=== PATIENT | male | born 1965 | race Caucasian/White ===

== ENCOUNTER → 2020-05-21 | Outpatient (CLI) | payer BC ==
[~2020-05-21] MED LIST: GADOBENATE DIMEGLUMINE 0 ML IV ONE; LISINOPRIL-HCT1 EACH PO
[2020-05-21 09:03] LABS: BLOOD UREA NITROGEN 22 mg/dL (7-26); BUN/CREATININE RATIO 19 (6-25); CREATININE, SERUM 1.15 mg/dL (0.72-1.25); EST GLOMERULAR FILTRATION RATE > 60 ML/MIN (60-)
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
== END ==
LOC: MRI 08:12
PROVIDERS: ATTEND Family Medicine
DX: R22.31 Localized swelling, mass and lump, right upper limb (principal); R42 Dizziness and giddiness; Z87.820 Personal history of traumatic brain injury
CPT/HCPCS: 36415; 70551; 82565; 84520

== ENCOUNTER → 2020-07-07 | Day surgery (SDC) | payer BC, OTHER ==
[2020-07-05 10:19] LABS: ANION GAP 18.8 mmol/L (8-16); CREATININE, SERUM 1.29 mg/dL (0.72-1.25); POTASSIUM 4.8 mmol/L (3.5-5.1)
[~2020-07-07] MED LIST changes: +ACETAMINOPHEN-1 EAC4 PO; +ALLEGRA-D 24 H1 EACH PO; +BUPROPION XL150 MG PO; +CEFAZOLIN SOD 1 GM/NS 50ML 100 ML IV ONE; +CYCLOBENZAPRINE10 MG PO; +DEXAMETHASONE SOD PHOS INJ 4 MG/ML VIAL ONE; +DIAZEPAM5 MG PO; +EPHEDRINE SULFATE INJ 50 MG/ML VIAL ONE; +EPINEPHRINE 1 MG/ML 30ML VIAL ONE; +FENTANYL CITRATE/PF 100MCG/2 ML INJ ONE; +FLOMAX0.4 MG PO; -GADOBENATE DIMEGLUMINE 0 ML IV ONE; +GLYCOPYRROLATE INJ 0.2 MG/ML VIAL ONE; +KETOROLAC TROMETHAMINE 30 MG/ML VIAL ONE; +LIDOCAINE 2%/ EPINEPHRINE 20ML MDV ONE; +LIDOCAINE HCL 2% LOCAL INJ 5 ML SDV VIAL INJ ONE; +MIDAZOLAM HCL 2 MG/2 ML VIAL ONE; +NABUMETONE750 MG PO; +NEOSTIGMINE 1 MG/ML 10ML VIAL ONE; +OLANZAPINE5 MG PO; +ONDANSETRON HCL INJ 2MG/ML 2ML 2 MG/ML VIAL ONE; +PRAVACHOL40 MG PO; +PROPOFOL IV EMULSION 10 MG/ML 20 ML VIAL ONE; +ROCURONIUM BROMIDE 10 MG/ML 5ML VIAL IV ONE; +ROPIVACAINE 0.5% 5 MG/ML 30 ML SDV ONE; +SEVOFLURANE INHAL SOLN 250 ML PEN BTL ONE; +SUCCINYLCHOLINE CHLORIDE 20 MG/ML 10ML VIAL ONE; +XIGDUO XR 10 M1 EAC1 PO
--- NOTE | 2020-07-07 10:25 | Operative Report ---
DATE OF PROCEDURE: 07/07/2020 SURGEON: Juve Hebert MD PREOPERATIVE DIAGNOSES: 1. Right shoulder rotator cuff tear. 2. Right shoulder AC joint arthritis. POSTOPERATIVE DIAGNOSES: 1. Right shoulder rotator cuff tear. 2. Right shoulder AC joint arthritis. 3. Right shoulder synovitis. 4. Right shoulder partial biceps tendon tear. 5. Right shoulder chondromalacia glenoid. OPERATIONS/PROCEDURES PERFORMED: The patient underwent right shoulder exam under anesthesia, right shoulder arthroscopy, right shoulder debridement of synovitis, right shoulder chondroplasty of the glenoid, right shoulder arthroscopic debridement of partial biceps tendon tear, right shoulder arthroscopic rotator cuff reconstruction, right shoulder arthroscopic subacromial decompression and acromioplasty, right shoulder arthroscopic distal clavicle resection. 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 ANESTHESIA: General endotracheal intubation anesthesia as well as regional block. IV FLUIDS: Per the anesthesia record. BLOOD LOSS: Minimal. COMPLICATIONS: None. BRIEF DESCRIPTION OF THE PATIENT'S OPERATIVE PROCEDURE: Mr. Tovar was taken to the operating room and placed in a supine position on the operating table. Following induction of general anesthesia as well as endotracheal intubation, patient's right upper extremity was examined under anesthesia. He was found to have a normal-appearing shoulder. He had full passive range of motion of the shoulder joint without evidence of instability. The patient's upper extremity was prepped and draped in the standard surgical fashion. Standard posterior lateral and anterior port was created without difficulty. The scope was placed within the shoulder joint atraumatically. Examination of the glenohumeral articulation demonstrated chondromalacia of the glenoid. There was diffuse synovitis in the shoulder joint. There were no loose bodies. There was a full-thickness and mildly retracted rotator cuff tear. A probe was placed in the shoulder joint and examination of the biceps tendon demonstrated that it was contained within the shoulder joint, but the extra-articular portion of the biceps tendon was found to be partially torn. The shaver was placed in the shoulder and the synovitis was debrided. A chondroplasty of the glenoid was performed. The biceps tendon injury was also debrided at this time. The shaver was then used to debride the insertion site for the rotator cuff. A bleeding bony bed was created over the greater tuberosity in the region, where the rotator cuff was torn. The shoulder was inflated with sterile normal saline. The scope was transferred to the subacromial space and there were significant bursal inflammation. A lateral portal was created from an outside-in technique. A bursectomy was performed. The rotator cuff injury was easily identified. The insertion site was further debrided using a shaver. A single triple loaded suture anchor was inserted into the greater tuberosity of the humerus and the suture arms from the anchor were then woven through the rotator cuff tissue. The rotator cuff tissue was then advanced and tied firmly over the greater tuberosity in creating the repair of the patient's injury. An aggressive acromioplasty was then performed. The shoulder was then placed in range of motion and no impingement was encountered. Attention was then turned to the acromioclavicular joint. The anterior portal was transferred into the subacromial space. Shaver was used to isolate the distal clavicle. The shaver was then used to resect a 1 cm section of the distal clavicle. This is confirmed by transferring the scope to the anterior portal. The shoulder was then deflated with sterile normal saline. Each of the portal sites were closed using 4-0 nylon suture. The port sites were then dressed sterilely. The patient was then provided with a shoulder immobilizer and awakened and taken to the postanesthesia care unit in stable condition. MD TITUS Marion/RENA /[id number]
[2020-07-07 10:40] VITALS: BP 156/100
== END | disposition home or self-care (01) ==
LOC: OR 05:00
PROVIDERS: ATTEND Specialist
DX: M75.121 Complete rotator cuff tear or rupture of right shoulder, not specified as traumatic (principal); M19.011 Primary osteoarthritis, right shoulder; M75.122 Complete rotator cuff tear or rupture of left shoulder, not specified as traumatic; M19.012 Primary osteoarthritis, left shoulder; M65.811 Other synovitis and tenosynovitis, right shoulder; S46.211A Strain of muscle, fascia and tendon of other parts of biceps, right arm, initial encounter; M94.211 Chondromalacia, right shoulder; E11.9 Type 2 diabetes mellitus without complications; R20.2 Paresthesia of skin; I10 Essential (primary) hypertension; E78.5 Hyperlipidemia, unspecified; K21.9 Gastro-esophageal reflux disease without esophagitis; F41.9 Anxiety disorder, unspecified; F32.9 Major depressive disorder, single episode, unspecified; Z01.810 Encounter for preprocedural cardiovascular examination; Z01.812 Encounter for preprocedural laboratory examination; Z11.59 Encounter for screening for other viral diseases; Z68.33 Body mass index [BMI] 33.0-33.9, adult; Z87.891 Personal history of nicotine dependence
CPT/HCPCS: 29824; 29826; 29827; 36415 ×2; 80048; 82948; 93005; C1713; J0330; J0690; J1100; J1885; J2001 ×2; J2250; J2405; J2704; J2710; J2795; J3010; U0002

== ENCOUNTER → 2020-09-22 | Day surgery (SDC) | payer BC ==
[2020-09-17 15:46] LABS: BASOPHILS # (AUTO) 0.1 (0.0-0.1); EOSINOPHILS # (AUTO) 0.2 (0.0-0.4); EOSINOPHILS % 2.4 % (0.0-6.0); HEMATOCRIT 50.5 % (38.2-49.6); LYMPHOCYTES % 24.1 % (18.0-39.1); MEAN CORPUSCULAR HEMOGLOBIN 33.7 pg (28-32); MEAN CORPUSCULAR HGB CONC 33.7 g/dL (31-35); MONOCYTES # (AUTO) 1.3 (0.2-0.8); NEUTROPHILS # (AUTO) 4.8 (2.1-6.9); NEUTROPHILS % 57.1 % (38.7-80.0); PLATELET COUNT 192 x10e3/uL (140-360); RED BLOOD COUNT 5.05 x10e6/uL (4.3-5.7); RED CELL DISTRIBUTION WIDTH 12.6 % (11.7-14.4)
[2020-09-17 16:06] LABS: ANION GAP 14.9 mmol/L (8-16); BLOOD UREA NITROGEN 18 mg/dL (7-26); BUN/CREATININE RATIO 17 (6-25); CALCIUM 10.1 mg/dL (8.4-10.2); CARBON DIOXIDE 27 mmol/L (22-29); CHLORIDE 102 mmol/L (98-107); CREATININE, SERUM 1.03 mg/dL (0.72-1.25); EST GLOMERULAR FILTRATION RATE > 60 ML/MIN (60-); GLUCOSE 169 mg/dL (74-118); POTASSIUM 3.9 mmol/L (3.5-5.1); SODIUM 140 mmol/L (136-145)
[~2020-09-22] MED LIST changes: -EPHEDRINE SULFATE INJ 50 MG/ML VIAL ONE; +EPINEPHRINE HCL 1:1000 1ML 1 MG/ML AMP ONE; -GLYCOPYRROLATE INJ 0.2 MG/ML VIAL ONE; -KETOROLAC TROMETHAMINE 30 MG/ML VIAL ONE; -NEOSTIGMINE 1 MG/ML 10ML VIAL ONE; -ONDANSETRON HCL INJ 2MG/ML 2ML 2 MG/ML VIAL ONE; -SUCCINYLCHOLINE CHLORIDE 20 MG/ML 10ML VIAL ONE; +ZEBETA10 MG PO
[2020-09-22 12:05] VITALS: BP 126/81
== END | disposition home or self-care (01) ==
LOC: OR 05:36
PROVIDERS: ATTEND Specialist
DX: M75.122 Complete rotator cuff tear or rupture of left shoulder, not specified as traumatic (principal); M19.012 Primary osteoarthritis, left shoulder; M65.812 Other synovitis and tenosynovitis, left shoulder; S46.212A Strain of muscle, fascia and tendon of other parts of biceps, left arm, initial encounter; G47.33 Obstructive sleep apnea (adult) (pediatric); I10 Essential (primary) hypertension; E11.9 Type 2 diabetes mellitus without complications; X58.XXXA Exposure to other specified factors, initial encounter; Z01.812 Encounter for preprocedural laboratory examination; Z20.828 Contact with and (suspected) exposure to other viral communicable diseases; Z79.84 Long term (current) use of oral hypoglycemic drugs; Z68.33 Body mass index [BMI] 33.0-33.9, adult
CPT/HCPCS: 36415; 71046; 80048; 82948; 85025; 93005; C1713; J0171; J0690; J1100; J2001; J2250; J2795; J3010; U0002

== ENCOUNTER → 2021-01-12 | Outpatient (CLI) | payer BC ==
[~2021-01-12] MED LIST changes: -CEFAZOLIN SOD 1 GM/NS 50ML 100 ML IV ONE; -DEXAMETHASONE SOD PHOS INJ 4 MG/ML VIAL ONE; -EPINEPHRINE 1 MG/ML 30ML VIAL ONE; -EPINEPHRINE HCL 1:1000 1ML 1 MG/ML AMP ONE; -FENTANYL CITRATE/PF 100MCG/2 ML INJ ONE; -LIDOCAINE 2%/ EPINEPHRINE 20ML MDV ONE; -LIDOCAINE HCL 2% LOCAL INJ 5 ML SDV VIAL INJ ONE; -MIDAZOLAM HCL 2 MG/2 ML VIAL ONE; -PROPOFOL IV EMULSION 10 MG/ML 20 ML VIAL ONE; -ROCURONIUM BROMIDE 10 MG/ML 5ML VIAL IV ONE; -ROPIVACAINE 0.5% 5 MG/ML 30 ML SDV ONE; -SEVOFLURANE INHAL SOLN 250 ML PEN BTL ONE
== END ==
LOC: MRI 10:44
PROVIDERS: ATTEND Family Medicine
DX: R55 Syncope and collapse (principal); R93.6 Abnormal findings on diagnostic imaging of limbs
CPT/HCPCS: 93880; 95812

== ENCOUNTER 2021-06-12 12:13 | Inpatient (IN) | payer BC ==
[~2021-06-12] VITALS: Ht 172.7 cm; Wt 93.0 kg
[2021-06-12] MEDS ORDERED: METHYLPREDNISOLONE SOD SUCC 125 MG/2ML VIAL IV STA (12:22)
[2021-06-12] MEDS ORDERED: DIPHENHYDRAMINE HCL INJ 50 MG/ML VIAL IV NR (12:30)
[2021-06-12] MEDS ORDERED: MULTIVITAMINS- 12 INJECTION 10 ML, FOLIC ACID MDV 1 MG, THIAMINE HCL INJ 100 MG in SODI... IV ONE ×2 (12:30→15:30)
[2021-06-12] MEDS ORDERED: LORAZEPAM INJ 2 MG/ML VIAL IV NR (12:30)
[2021-06-12] MEDS ORDERED: FAMOTIDINE 20 MG/2 ML VIAL IV NR (12:45)
[2021-06-12 13:29] LABS: BASOPHILS # (AUTO) 0.1 (0.0-0.1); BASOPHILS % 0.8 % (0.0-1.0); EOSINOPHILS # (AUTO) 0.1 (0.0-0.4); EOSINOPHILS % 1.7 % (0.0-6.0); HEMATOCRIT 40.5 % (38.2-49.6); HEMOGLOBIN 13.7 g/dL (14.0-18.0); LYMPHOCYTES # (AUTO) 2.3 (1.0-3.2); LYMPHOCYTES % 31.9 % (18.0-39.1); MEAN CORPUSCULAR HEMOGLOBIN 33.2 pg (28-32); MEAN CORPUSCULAR HGB CONC 33.8 g/dL (31-35); MEAN CORPUSCULAR VOLUME 98.1 fL (81-99); MONOCYTES # (AUTO) 0.8 (0.2-0.8); MONOCYTES % 11.6 % (4.4-11.3); NEUTROPHILS # (AUTO) 3.9 (2.1-6.9); NEUTROPHILS % 53.7 % (38.7-80.0); PLATELET COUNT 224 x10e3/uL (140-360); RED BLOOD COUNT 4.13 x10e6/uL (4.3-5.7); RED CELL DISTRIBUTION WIDTH 14.5 % (11.7-14.4)
[2021-06-12 13:43] LABS: AMPHETAMINES SCREEN,URINE NEGATIVE (NEGATIVE); BENZODIAZEPINES SCREEN,URINE POSITIVE (NEGATIVE); PHENCYCLIDINE SCREEN,URINE NEGATIVE (NEGATIVE)
[2021-06-12 13:44] LABS: CLARITY,URINE CLEAR (CLEAR); COLOR,URINE YELLOW (YELLOW); KETONES,URINE 1+ (NEGATIVE); LEUKOCYTE ESTERASE ,URINE NEGATIVE (NEGATIVE); NITRITE,URINE NEGATIVE (NEGATIVE); PROTEIN,URINE DIPSTICK NEGATIVE (NEGATIVE); URINE UROBILINOGEN 0.2 mg/dL (0.2 - 1)
[2021-06-12 13:51] LABS: INR 0.98; PROTHROMBIN TIME 13.2 seconds (11.9-14.5)
[2021-06-12 13:56] LABS: BACTERIA,URINE FEW /HPF; EPITHELIAL CELLS,URINE RARE /LPF; WBC,URINE (MAN) 0-5 /HPF (0-5)
[2021-06-12 13:58] LABS: ALBUMIN 4.3 g/dL (3.5-5.0); ALBUMIN/GLOBULIN RATIO 1.3 (0.8-2.0); ANION GAP 22.6 mmol/L (8-16); CALCIUM 9.9 mg/dL (8.4-10.2); CREATININE, SERUM 1.31 mg/dL (0.72-1.25); POTASSIUM 3.6 mmol/L (3.5-5.1)
[2021-06-12 14:05] LABS: CREATINE KINASE MB 4.1 ng/mL (0-5.0)
[2021-06-12] MEDS ORDERED: IOPAMIDOL 370 MG/ML 200 ML INFUS..BTL INJ ONE (14:32)
[2021-06-12] MEDS ORDERED: SODIUM CHLORIDE 0.9% 50ML 50 ML ONE (14:32)
[2021-06-12] MEDS ORDERED: LEVETIRACETAM 500MG/5ML VIAL 1,000 MG in SODIUM CHLORIDE 0.9% 100 ML 100 ML IV ONE (15:00)
[2021-06-12] MEDS ORDERED: LORAZEPAM INJ 2 MG/ML VIAL IV PRN (15:30)
[2021-06-12] MEDS ORDERED: ONDANSETRON HCL INJ 2MG/ML 2ML 2 MG/ML VIAL IV PRN ×2 (15:30→19:30)
[2021-06-12] MEDS ORDERED: FAMOTIDINE 20 MG/2 ML VIAL IV SCH (15:30)
[2021-06-12 17:40] VITALS: BP 128/89
[2021-06-12 18:00] VITALS: BP 128/89
[2021-06-12 18:54] LABS: CREATINE KINASE MB 3.1 ng/mL (0-5.0)
[2021-06-12] MEDS ORDERED: ACETAMINOPHEN 325 MG TAB PO PRN (19:30)
[2021-06-12] MEDS ORDERED: HYDRALAZINE HCL 20 MG/ML VIAL IV PRN (19:30)
[2021-06-12] MEDS ORDERED: POLYETHYLENE GLYCOL 3350 17 GM PACK PO PRN (19:30)
[2021-06-12 20:00] VITALS: BP 131/89
[2021-06-12] MEDS ORDERED: BUPROPION HCL150 MG PO (22:04)
[2021-06-12] MEDS ORDERED: BUPROPION HCL150 M2 PO (22:04)
[2021-06-12 22:25] VITALS: BP 131/89
[2021-06-12] MEDS ORDERED: DIAZEPAM 5 MG TAB PO PRN (22:30)
[2021-06-13] VITALS (7 sets, daily range): BP systolic 99–112; BP diastolic 61–80
[2021-06-13 00:31] LABS: CREATINE KINASE MB 2.7 ng/mL (0-5.0)
[2021-06-13 06:31] LABS: BASOPHILS % 0.2 % (0.0-1.0); HEMATOCRIT 37.1 % (38.2-49.6); HEMOGLOBIN 12.6 g/dL (14.0-18.0); LYMPHOCYTES % 7.8 % (18.0-39.1); MEAN CORPUSCULAR HEMOGLOBIN 32.8 pg (28-32); MEAN CORPUSCULAR VOLUME 96.6 fL (81-99); MONOCYTES # (AUTO) 1.1 (0.2-0.8); MONOCYTES % 8.6 % (4.4-11.3); NEUTROPHILS # (AUTO) 10.1 (2.1-6.9); NEUTROPHILS % 82.7 % (38.7-80.0); PLATELET COUNT 210 x10e3/uL (140-360); RED BLOOD COUNT 3.84 x10e6/uL (4.3-5.7); RED CELL DISTRIBUTION WIDTH 14.1 % (11.7-14.4)
[2021-06-13 06:53] LABS: ALBUMIN 3.4 g/dL (3.5-5.0); ALBUMIN/GLOBULIN RATIO 1.2 (0.8-2.0); CALCIUM 8.6 mg/dL (8.4-10.2); CHOL/HDL RATIO 2.1 (3.9-4.7); CREATININE, SERUM 1.33 mg/dL (0.72-1.25); MAGNESIUM 1.4 MG/DL (1.3-2.1); PHOSPHORUS 1.7 MG/DL (2.3-4.7)
[2021-06-13 07:17] LABS: THYROID STIMULATING HORMONE 0.643 uIU/mL (0.350-4.940)
[2021-06-13 07:26] LABS: CREATINE KINASE MB 2.6 ng/mL (0-5.0)
[2021-06-13] MEDS: DOCUSATE SODIUM 100 MG CAP PO SCH ×2 (09:00→17:00)
[2021-06-13] MEDS: LORATADINE/PSEUDOEPHEDRINE 24 HR SR TAB PO SCH (09:50)
[2021-06-13] MEDS: FAMOTIDINE 20 MG TAB PO SCH ×2 (09:50→17:37)
[2021-06-13] MEDS: LEVETIRACETAM 500 MG TAB PO SCH ×2 (09:50→17:00)
[2021-06-13] MEDS: OLANZAPINE 5 MG TAB PO SCH (09:50)
[2021-06-13] MEDS: TAMSULOSIN HCL 0.4 MG CAP PO SCH (09:50)
[2021-06-13] MEDS: BUPROPION HCL SR 150 MG TAB PO SCH ×2 (17:38→21:46)
[2021-06-13] MEDS ORDERED: SIMVASTATIN 20 MG TAB PO SCH (21:00)
[2021-06-13] MEDS: SIMVASTATIN 40 MG TAB PO SCH (21:47)
[2021-06-14] VITALS (8 sets, daily range): BP systolic 102–140; BP diastolic 66–97
[2021-06-14] MEDS: OLANZAPINE 5 MG TAB PO SCH (08:15)
[2021-06-14] MEDS: FAMOTIDINE 20 MG TAB PO SCH ×2 (08:15→17:30)
[2021-06-14] MEDS: LORATADINE/PSEUDOEPHEDRINE 24 HR SR TAB PO SCH (08:15)
[2021-06-14] MEDS: TAMSULOSIN HCL 0.4 MG CAP PO SCH (08:15)
[2021-06-14] MEDS: BUPROPION HCL SR 150 MG TAB PO SCH ×2 (08:15→21:44)
[2021-06-14] MEDS: METFORMIN HCL 500 MG TAB PO SCH (08:15)
[2021-06-14] MEDS: DOCUSATE SODIUM 100 MG CAP PO SCH ×2 (08:15→17:30)
[2021-06-14] MEDS: LEVETIRACETAM 500 MG TAB PO SCH ×2 (09:00→12:40)
[2021-06-14] MEDS: SIMVASTATIN 40 MG TAB PO SCH (21:44)
[2021-06-15] VITALS: BP 127/70
[2021-06-15 04:00] VITALS: BP 115/70
[2021-06-15 05:50] LABS: BASOPHILS % 0.4 % (0.0-1.0); EOSINOPHILS # (AUTO) 0.2 (0.0-0.4); EOSINOPHILS % 2.5 % (0.0-6.0); HEMATOCRIT 39.5 % (38.2-49.6); LYMPHOCYTES # (AUTO) 2.6 (1.0-3.2); MEAN CORPUSCULAR HEMOGLOBIN 33.1 pg (28-32); MEAN CORPUSCULAR HGB CONC 32.9 g/dL (31-35); MEAN CORPUSCULAR VOLUME 100.5 fL (81-99); NEUTROPHILS # (AUTO) 4.5 (2.1-6.9); NEUTROPHILS % 53.6 % (38.7-80.0); PLATELET COUNT 175 x10e3/uL (140-360); RED BLOOD COUNT 3.93 x10e6/uL (4.3-5.7); RED CELL DISTRIBUTION WIDTH 14.7 % (11.7-14.4)
[2021-06-15 06:15] LABS: ANION GAP 13.5 mmol/L (8-16); CALCIUM 9.8 mg/dL (8.4-10.2); MAGNESIUM 1.3 MG/DL (1.3-2.1); PHOSPHORUS 3.8 MG/DL (2.3-4.7); POTASSIUM 3.5 mmol/L (3.5-5.1)
[2021-06-15 07:28] VITALS: BP 115/70
[2021-06-15 07:50] VITALS: BP 131/75
[2021-06-15] MEDS: TAMSULOSIN HCL 0.4 MG CAP PO SCH (08:08)
[2021-06-15] MEDS: BUPROPION HCL SR 150 MG TAB PO SCH (08:08)
[2021-06-15] MEDS: FAMOTIDINE 20 MG TAB PO SCH ×2 (08:08→16:27)
[2021-06-15] MEDS: LORATADINE/PSEUDOEPHEDRINE 24 HR SR TAB PO SCH (08:08)
[2021-06-15] MEDS: OLANZAPINE 5 MG TAB PO SCH (08:08)
[2021-06-15] MEDS: METFORMIN HCL 500 MG TAB PO SCH (08:08)
[2021-06-15] MEDS: LEVETIRACETAM 500 MG TAB PO SCH ×2 (08:08→16:27)
[2021-06-15] MEDS: DOCUSATE SODIUM 100 MG CAP PO SCH ×2 (08:08→16:27)
[2021-06-15] MEDS ORDERED: FOLIC ACID 1 MG TAB PO SCH (09:00)
[2021-06-15] MEDS ORDERED: THIAMINE HCL 100 MG TAB PO SCH (09:00)
[2021-06-15 11:17] VITALS: BP 126/72
[2021-06-15] MEDS ORDERED: ONDANSETRON HCL 4 MG ORAL DISINTEGRATING TAB PO PRN (14:00)
[2021-06-15] MEDS ORDERED: KEPPRA500 MG PO ×2 (15:26→15:27)
[2021-06-15 15:53] VITALS: BP 128/92
== END 2021-06-15 19:58 | disposition home or self-care (01) | DRG 101 ==
LOC: ER 12:21 → ERHOLD 15:24 → MED/SURG 17:35
PROVIDERS: ADMIT Internal Medicine; ATTEND Internal Medicine
DX: R56.9 Unspecified convulsions (principal); F07.81 Postconcussional syndrome; F10.20 Alcohol dependence, uncomplicated; Y90.0 Blood alcohol level of less than 20 mg/100 ml; I10 Essential (primary) hypertension; E11.9 Type 2 diabetes mellitus without complications; E03.9 Hypothyroidism, unspecified; F11.90 Opioid use, unspecified, uncomplicated; F19.90 Other psychoactive substance use, unspecified, uncomplicated; M54.81 Occipital neuralgia; Z98.890 Other specified postprocedural states; Z87.820 Personal history of traumatic brain injury; T78.3XXA Angioneurotic edema, initial encounter; M48.02 Spinal stenosis, cervical region; Z20.822 Contact with and (suspected) exposure to COVID-19
CPT/HCPCS: 36415; 70450; 70491; 72141; 80048; 80053; 80061; 80307; 80320; 81001; 82140; 82550; 82553; 82948; 83036; 83735; 84100; 84443; 84484; 85025; 85610; 85730; 93005; 93880; 99284; J1200; J2060; J2930; J3411; J7030; Q9967; U0002

== ENCOUNTER → 2023-03-30 | Outpatient (CLI) | payer MEDICARE ==
[~2023-03-30] MED LIST changes: +BUPROPION HCL150 M2 PO; +BUPROPION HCL150 MG PO; +KEPPRA500 MG PO
== END ==
LOC: MRI 14:29
PROVIDERS: ATTEND Family Medicine
DX: M54.50 Low back pain, unspecified (principal); M51.37 Other intervertebral disc degeneration, lumbosacral region; R91.1 Solitary pulmonary nodule
CPT/HCPCS: 71250; 72148